=== PATIENT | female | born 1930 | race Caucasian/White ===

== ENCOUNTER → 2016-09-18 | Outpatient (CLI) | payer OTHER ==
--- NOTE | 2016-09-18 14:05 | MA ---
Bilateral Digital Screening Mammography Clinical History: 86-year-old female with no family history of breast cancer who presents for routin e annual mammographic screening. Technique: Digital CC and MLO views of each breast were compared with previous studies dated September 16, 2015, August 26, 2014, August 25, 2013, August 23, 2012, August 22, 2011, and August. Additionally, this examination was processed by the [employer] computer-aided detection system. Breast Density: Type B. CAD Evaluation: Reviewed. Findings: There is a mild residual fibroglandular pattern, which is stable in configuration. There i s no focal neodensity or interim architectural change. A slight parenchymal asymmetry in the outer ri ght breast is reassuringly stable from multiple preceding studies. Benign-appearing axillary lymph no desire are seen. There are some vascular calcifications observed. Benign-appearing calcifications are se en bilaterally, and are unchanged. Impression: Benign mammography. BI-RADS category 2. Recommendation: Routine annual mammographic screening. [facility] will send a result letter to the patient. Negative mammography should not preclude additional workup of a clinically suspicious finding. The patients information is entered into a reminder system with a target due date for her next mammog veronica.
== END ==
LOC: CIMAGING 12:08
PROVIDERS: ATTEND Internal Medicine
DX: Z12.31 Encounter for screening mammogram for malignant neoplasm of breast (principal)
CPT/HCPCS: G0202

== ENCOUNTER → 2017-09-20 | Outpatient (CLI) | payer OTHER | LOC: CIMAGING 10:58 | PROVIDERS: ATTEND Internal Medicine | DX: Z12.31 Encounter for screening mammogram for malignant neoplasm of breast (principal) ==

== ENCOUNTER → 2018-09-26 | Outpatient (CLI) | payer OTHER | LOC: CIMAGING 10:31 | PROVIDERS: ATTEND Internal Medicine | DX: Z12.31 Encounter for screening mammogram for malignant neoplasm of breast (principal) ==